=== PATIENT | male | born 1935 | race Caucasian/White ===

== ENCOUNTER 2017-09-13 23:57 | Inpatient (IN) | payer MEDICARE, OTHER ==
[2017-09-14] MEDS: CEFEPIME 2GM/50 ML (PMX) 50 ML IVPB (00:08)
[2017-09-14] MEDS: SOD CHLORIDE 0.9% 1,000 ML IV (00:30)
[2017-09-14 00:38] LABS: ADD MAN DIFF? NO
[2017-09-14 00:51] LABS: BASOPHILS % 0.6 % (0.0-2.0); HEMATOCRIT 28.9 % (42.0-52.0); HEMOGLOBIN 9.3 g/dl (14.0-18.0); LYMPHOCYTES # 0.7 10^3/ul (0.8-2.9); LYMPHOCYTES % 9.9 % (15.0-51.0); MEAN CORPUSCULAR HEMOGLOBIN 29.1 pg (29.0-33.0); MEAN CORPUSCULAR HGB CONC 32.2 g/dl (32.0-37.0); MEAN CORPUSCULAR VOLUME 90.3 fl (82.0-101.0); MEAN PLATELET VOLUME 10.3 fl (7.4-10.4); MONOCYTE # 0.4 10^3/ul (0.3-0.9); MONOCYTES % 5.8 % (0.0-11.0); NEUTROPHIL # 5.4 10^3/ul (1.6-7.5); NEUTROPHILS % 83.1 % (39.0-77.0); PLATELET COUNT 105 10^3/UL (140-415); RED CELL DISTRIBUTION WIDTH 14.1 % (11.5-14.5)
[2017-09-14 00:51] LABS: WHITE BLOOD COUNT 6.6 10^3/ul (4.8-10.8)
[2017-09-14 01:09] LABS: ALANINE AMINOTRANSFERASE 34 IU/L (13-69); ALBUMIN 2.5 g/dl (3.3-4.9); ALBUMIN/GLOBULIN RATIO 0.78; ALKALINE PHOSPHATASE 140 IU/L (42-121); ANION GAP 9 (8-16); ASPARTATE AMINO TRANSFERASE 34 IU/L (15-46); BILIRUBIN,INDIRECT 0.2 mg/dl (0-1.1); BILIRUBIN,TOTAL 0.2 mg/dl (0.2-1.3); BLOOD UREA NITROGEN 24 mg/dl (7-20); CARBON DIOXIDE 31 mmol/L (21-31); CHLORIDE 95 mmol/L (97-110); CREATININE 2.47 mg/dl (0.61-1.24); GLUCOSE 165 mg/dl (70-220); SODIUM 132 mmol/L (135-144); TOTAL PROTEIN 5.7 g/dl (6.1-8.1)
[2017-09-14 01:11] LABS: LACTIC ACID 0.8 mmol/L (0.5-2.0)
[2017-09-14 01:25] LABS: PROTIME 15.4 Sec (11.9-14.9); PT RATIO 1.2
[2017-09-14 01:26] LABS: PARTIAL THROMBOPLASTIN TIME 33.5 Sec (25.0-35.0)
[2017-09-14 01:28] LABS: TROPONIN-I 0.139 ng/ml (0.00-0.12)
[2017-09-14] MEDS: ASPIRIN 300 MG SUPP PR (02:04)
[2017-09-14] MEDS: VANCOMYCIN 1 GM (PMX) 250 ML IVPB (02:13)
[2017-09-14] MEDS: CEFEPIME 1GM/50 ML (PMX) 50 ML IVPB ×2 (02:15→09:41)
[2017-09-14] MEDS: POTASSIUM CHLORIDE (SR) 20 MEQ TAB PO (03:22)
[2017-09-14] MEDS ORDERED: ONDANSETRON 4 MG INJ IV (03:30)
[2017-09-14] MEDS ORDERED: MAGNESIUM HYDROXIDE 30ML CUP PO (03:30)
[2017-09-14] MEDS ORDERED: VANCOMYCIN IV PER PHARMACY XX (03:30)
[2017-09-14] MEDS ORDERED: ACETAMINOPHEN 325 MG TAB PO (03:30)
[2017-09-14] MEDS ORDERED: SENNA TAB PO (03:30)
[2017-09-14] MEDS ORDERED: DOCUSATE SODIUM 100 MG CAP PO ×2 (03:30)
[2017-09-14] MEDS ORDERED: NACL 0.9% 3 ML SYG IV (03:30)
[2017-09-14 03:57] LABS: ADD UMIC YES; UR ASCORBIC ACID NEGATIVE (NEGATIVE); UR BILIRUBIN (Dip) NEGATIVE (NEGATIVE); UR BLOOD (Dip) NEGATIVE (NEGATIVE); UR CLARITY CLEAR (CLEAR); UR COLOR AMBER (YELLOW); UR GLUCOSE (Dip) 2+ mg/dL (NEGATIVE); UR KETONES (Dip) NEGATIVE (NEGATIVE); UR LEUKOCYTE ESTERASE (Dip) NEGATIVE Leu/ul (NEGATIVE); UR NITRITE (Dip) NEGATIVE (NEGATIVE); UR RBC 20 /HPF (0-5); UR SPECIFIC GRAVITY (Dip) 1.018 (1.003-1.030); UR SQUAMOUS EPITHELIAL CELL FEW /HPF (FEW); UR TOTAL PROTEIN (Dip) 3+ mg/dl (NEGATIVE); UR UROBILINOGEN (Dip) 2+ mg/dL (NEGATIVE); UR WBC 4 /HPF (0-5)
[2017-09-14] MEDS: POTASSIUM CHLORIDE 20 MEQ POWDER FOR ORAL SOLN PO (05:12)
[2017-09-14 06:50] LABS: CREATINE KINASE 93 IU/L (23-200)
[2017-09-14 06:51] LABS: LACTIC ACID 0.7 mmol/L (0.5-2.0); MAGNESIUM 1.8 mg/dl (1.7-2.5)
[2017-09-14 07:02] LABS: CK INDEX 0.9
[2017-09-14 07:05] LABS: CK-MB 0.86 ng/ml (0.0-2.4)
[2017-09-14 07:07] LABS: TROPONIN-I 0.136 ng/ml (0.00-0.12)
[2017-09-14] MEDS: ACCU-CHEK XX (08:00)
[2017-09-14] MEDS: INSULIN ASPART [NOVOLOG] 3 ML PEN SC ×4 (08:00→21:00)
[2017-09-14] MEDS: PANTOPRAZOLE (EC) 40 MG TAB PO (10:06)
[2017-09-14] MEDS: LEVOTHYROXINE 25 MCG TAB PO (10:07)
[2017-09-14] MEDS: ASPIRIN 81 MG TAB PO (10:07)
[2017-09-14 10:09] LABS: CREATINE KINASE 98 IU/L (23-200)
[2017-09-14 10:18] LABS: CK INDEX 1.1
[2017-09-14 10:20] LABS: CK-MB 1.03 ng/ml (0.0-2.4)
[2017-09-14] MEDS: FERROUS SULFATE (EC) 325 MG TAB PO (10:27)
[2017-09-14] MEDS: CHOLECALCIFEROL 2,000 UNIT CAP PO (15:17)
[2017-09-14] MEDS: TAMSULOSIN (SR) 0.4 MG CAP PO ×2 (15:17→21:00)
[2017-09-14] MEDS: CYANOCOBALAMIN 500 MCG TAB PO (15:17)
[2017-09-14] MEDS: DILTIAZEM (CD) 120 MG CAP PO (15:18)
[2017-09-14] MEDS: HEPARIN 5,000 UNIT/0.5 ML VIAL SC ×2 (15:35→21:00)
[2017-09-14] MEDS: LINAGLIPTIN 5 MG TABLET PO (15:49)
[2017-09-14] MEDS: CLONIDINE 0.1 MG/24 HR PATCH TRANSDERM (15:51)
[2017-09-14] MEDS: ALBUTEROL/IPRATROPIUM (NEB) 3 ML AMP HHN (21:54)
[2017-09-15] MEDS: ALBUTEROL/IPRATROPIUM (NEB) 3 ML AMP HHN ×7 (02:48→21:00)
[2017-09-15 05:34] LABS: ADD MAN DIFF? NO
[2017-09-15] MEDS: PANTOPRAZOLE (EC) 40 MG TAB PO (06:13)
[2017-09-15] MEDS: LEVOTHYROXINE 25 MCG TAB PO (06:13)
[2017-09-15 06:18] LABS: PHOSPHORUS 4.8 mg/dl (2.5-4.9)
[2017-09-15 06:18] LABS: MAGNESIUM 1.8 mg/dl (1.7-2.5)
[2017-09-15 06:35] LABS: ALANINE AMINOTRANSFERASE 30 IU/L (13-69); ALBUMIN 2.5 g/dl (3.3-4.9); ALKALINE PHOSPHATASE 107 IU/L (42-121); ANION GAP 16 (8-16); ASPARTATE AMINO TRANSFERASE 28 IU/L (15-46); BILIRUBIN,INDIRECT 0.1 mg/dl (0-1.1); BILIRUBIN,TOTAL 0.1 mg/dl (0.2-1.3); BLOOD UREA NITROGEN 35 mg/dl (7-20); CALCIUM 7.9 mg/dl (8.4-10.2); CARBON DIOXIDE 25 mmol/L (21-31); CHLORIDE 96 mmol/L (97-110); CREATININE 3.26 mg/dl (0.61-1.24); GLUCOSE 101 mg/dl (70-220); SODIUM 134 mmol/L (135-144); TOTAL PROTEIN 5.6 g/dl (6.1-8.1)
[2017-09-15] MEDS: POTASSIUM CHLORIDE (SR) 20 MEQ TAB PO (07:03)
[2017-09-15] MEDS ORDERED: POTASSIUM CHLORIDE (SR) 20 MEQ TAB PO (07:39)
[2017-09-15] MEDS: FERROUS SULFATE (EC) 325 MG TAB PO (09:32)
[2017-09-15] MEDS: HEPARIN 5,000 UNIT/0.5 ML VIAL SC ×2 (09:32→21:00)
[2017-09-15] MEDS: TAMSULOSIN (SR) 0.4 MG CAP PO ×2 (09:32→20:50)
[2017-09-15] MEDS: ASPIRIN 81 MG TAB PO (09:32)
[2017-09-15] MEDS: CHOLECALCIFEROL 2,000 UNIT CAP PO (09:32)
[2017-09-15] MEDS: LINAGLIPTIN 5 MG TABLET PO (09:32)
[2017-09-15] MEDS: CYANOCOBALAMIN 500 MCG TAB PO (09:33)
[2017-09-15] MEDS: INSULIN ASPART [NOVOLOG] 3 ML PEN SC ×4 (09:38→21:00)
[2017-09-15] MEDS: DILTIAZEM (CD) 120 MG CAP PO (09:50)
[2017-09-15 10:09] LABS: WHITE BLOOD COUNT 4.7 10^3/ul (4.8-10.8)
[2017-09-15 10:09] LABS: BASOPHILS % 0.4 % (0.0-2.0); EOSINOPHILS % 0.2 % (0.0-7.0); HEMATOCRIT 29.4 % (42.0-52.0); HEMOGLOBIN 9.2 g/dl (14.0-18.0); LYMPHOCYTES # 0.9 10^3/ul (0.8-2.9); LYMPHOCYTES % 19.5 % (15.0-51.0); MEAN CORPUSCULAR HEMOGLOBIN 28.8 pg (29.0-33.0); MEAN CORPUSCULAR HGB CONC 31.3 g/dl (32.0-37.0); MEAN CORPUSCULAR VOLUME 91.9 fl (82.0-101.0); MEAN PLATELET VOLUME 11.4 fl (7.4-10.4); MONOCYTE # 0.3 10^3/ul (0.3-0.9); NEUTROPHIL # 3.4 10^3/ul (1.6-7.5); NEUTROPHILS % 73.7 % (39.0-77.0); PLATELET COUNT 109 10^3/UL (140-415); RED CELL DISTRIBUTION WIDTH 14.2 % (11.5-14.5)
[2017-09-15] MEDS ORDERED: VANCOMYCIN 1.5 GM in DEXTROSE 5% 500 ML IVPB (14:00)
[2017-09-15] MEDS: ACETAMINOPHEN 325 MG TAB PO (15:52)
[2017-09-15] MEDS: METOPROLOL 25 MG TAB PO (20:52)
[2017-09-15] MEDS: ZOLPIDEM 5 MG TAB PO (20:53)
[2017-09-16] MEDS: CEFEPIME 1GM/50 ML (PMX) 50 ML IVPB ×2 (00:09→22:07)
[2017-09-16] MEDS: ALBUTEROL/IPRATROPIUM (NEB) 3 ML AMP HHN ×6 (00:46→21:38)
[2017-09-16] MEDS: ACCU-CHEK XX (02:10)
[2017-09-16 06:29] LABS: ADD MAN DIFF? NO
[2017-09-16 06:36] LABS: ABNORMAL IP MESSAGE 1; BASOPHILS % 0.3 % (0.0-2.0); EOSINOPHILS % 0.1 % (0.0-7.0); HEMOGLOBIN 9.9 g/dl (14.0-18.0); LYMPHOCYTES # 0.4 10^3/ul (0.8-2.9); LYMPHOCYTES % 4.6 % (15.0-51.0); MEAN CORPUSCULAR HEMOGLOBIN 29.3 pg (29.0-33.0); MEAN CORPUSCULAR VOLUME 88.8 fl (82.0-101.0); MEAN PLATELET VOLUME 10.6 fl (7.4-10.4); MONOCYTE # 0.2 10^3/ul (0.3-0.9); MONOCYTES % 2.6 % (0.0-11.0); NEUTROPHILS % 92.1 % (39.0-77.0); PLATELET COUNT 123 10^3/UL (140-415); POSITIVE DIFF @See below; RED BLOOD COUNT 3.38 10^6/ul (4.70-6.10)
[2017-09-16 06:36] LABS: WHITE BLOOD COUNT 7.6 10^3/ul (4.8-10.8)
[2017-09-16] MEDS: LEVOTHYROXINE 25 MCG TAB PO (06:36)
[2017-09-16] MEDS: PANTOPRAZOLE 40 MG INJ IV ×3 (06:36→17:13)
[2017-09-16] MEDS: ONDANSETRON 4 MG INJ IV ×3 (06:36→17:23)
[2017-09-16 07:10] LABS: ANION GAP 16 (8-16); BLOOD UREA NITROGEN 28 mg/dl (7-20); CALCIUM 8.1 mg/dl (8.4-10.2); CARBON DIOXIDE 26 mmol/L (21-31); CHLORIDE 98 mmol/L (97-110); CREATININE 3.07 mg/dl (0.61-1.24); GLUCOSE 120 mg/dl (70-220); MAGNESIUM 1.8 mg/dl (1.7-2.5); PHOSPHORUS 3.9 mg/dl (2.5-4.9); POTASSIUM 3.6 mmol/L (3.5-5.1); SODIUM 136 mmol/L (135-144)
[2017-09-16 07:38] LABS: VANCOMYCIN,RANDOM 6.5 ug/ml
[2017-09-16] MEDS: INSULIN ASPART [NOVOLOG] 3 ML PEN SC ×4 (08:37→20:39)
[2017-09-16] MEDS: TAMSULOSIN (SR) 0.4 MG CAP PO ×2 (08:39→20:34)
[2017-09-16] MEDS: CHOLECALCIFEROL 2,000 UNIT CAP PO (08:39)
[2017-09-16] MEDS: METOPROLOL 25 MG TAB PO ×2 (08:39→20:34)
[2017-09-16] MEDS: LINAGLIPTIN 5 MG TABLET PO (08:39)
[2017-09-16] MEDS: DILTIAZEM (CD) 120 MG CAP PO (08:39)
[2017-09-16] MEDS: CYANOCOBALAMIN 500 MCG TAB PO (08:39)
[2017-09-16] MEDS: FERROUS SULFATE (EC) 325 MG TAB PO (08:39)
[2017-09-16] MEDS: VANCOMYCIN 1.25 GM in DEXTROSE 5% 250 ML IVPB (13:23)
[2017-09-16] MEDS: POTASSIUM CHLORIDE (SR) 20 MEQ TAB PO (18:47)
[2017-09-16] MEDS: MAGNESIUM SULFATE 2 GM/50 ML 50 ML IVPB (18:47)
[2017-09-16] MEDS: ZOLPIDEM 5 MG TAB PO (20:33)
[2017-09-17] MEDS: ALBUTEROL/IPRATROPIUM (NEB) 3 ML AMP HHN ×6 (00:53→20:20)
[2017-09-17] MEDS: ACCU-CHEK XX (02:00)
[2017-09-17] MEDS: LEVOTHYROXINE 25 MCG TAB PO (06:18)
[2017-09-17] MEDS: PANTOPRAZOLE 40 MG INJ IV ×2 (06:18→17:21)
[2017-09-17] MEDS: INSULIN ASPART [NOVOLOG] 3 ML PEN SC ×4 (08:00→21:00)
[2017-09-17] MEDS: CHOLECALCIFEROL 2,000 UNIT CAP PO (09:04)
[2017-09-17] MEDS: FERROUS SULFATE (EC) 325 MG TAB PO (09:04)
[2017-09-17] MEDS: CYANOCOBALAMIN 500 MCG TAB PO (09:05)
[2017-09-17] MEDS: TAMSULOSIN (SR) 0.4 MG CAP PO ×2 (09:05→21:00)
[2017-09-17] MEDS: LINAGLIPTIN 5 MG TABLET PO (09:05)
[2017-09-17] MEDS: METOPROLOL 25 MG TAB PO ×2 (09:05→21:00)
[2017-09-17] MEDS: DILTIAZEM (CD) 120 MG CAP PO (09:05)
[2017-09-17 11:44] LABS: ALANINE AMINOTRANSFERASE 33 IU/L (13-69); ALBUMIN 2.6 g/dl (3.3-4.9); ALBUMIN/GLOBULIN RATIO 0.78; ALKALINE PHOSPHATASE 108 IU/L (42-121); ANION GAP 15 (8-16); ASPARTATE AMINO TRANSFERASE 31 IU/L (15-46); BILIRUBIN,INDIRECT 0.1 mg/dl (0-1.1); BILIRUBIN,TOTAL 0.1 mg/dl (0.2-1.3); BLOOD UREA NITROGEN 33 mg/dl (7-20); CALCIUM 8.2 mg/dl (8.4-10.2); CARBON DIOXIDE 25 mmol/L (21-31); CHLORIDE 97 mmol/L (97-110); GLUCOSE 116 mg/dl (70-220); MAGNESIUM 2.4 mg/dl (1.7-2.5); POTASSIUM 3.5 mmol/L (3.5-5.1); SODIUM 133 mmol/L (135-144); TOTAL PROTEIN 5.9 g/dl (6.1-8.1)
[2017-09-17] MEDS: HYDROCODONE/APAP (5/325) TAB PO (14:44)
[2017-09-17] MEDS: CEFEPIME 1GM/50 ML (PMX) 50 ML IVPB (23:21)
[2017-09-18] MEDS: ALBUTEROL/IPRATROPIUM (NEB) 3 ML AMP HHN ×6 (01:00→20:00)
[2017-09-18] MEDS: ACCU-CHEK XX (02:00)
[2017-09-18] MEDS: PANTOPRAZOLE 40 MG INJ IV ×2 (06:26→17:22)
[2017-09-18] MEDS: LEVOTHYROXINE 25 MCG TAB PO (06:26)
[2017-09-18] MEDS: INSULIN ASPART [NOVOLOG] 3 ML PEN SC ×4 (08:00→21:00)
[2017-09-18 08:38] LABS: ADD MAN DIFF? NO
[2017-09-18 08:46] LABS: WHITE BLOOD COUNT 9.3 10^3/ul (4.8-10.8)
[2017-09-18 08:46] LABS: ABNORMAL IP MESSAGE 1; BASOPHILS % 0.2 % (0.0-2.0); EOSINOPHILS % 0.1 % (0.0-7.0); HEMOGLOBIN 8.9 g/dl (14.0-18.0); LYMPHOCYTES # 0.5 10^3/ul (0.8-2.9); LYMPHOCYTES % 5.8 % (15.0-51.0); MEAN CORPUSCULAR HEMOGLOBIN 28.6 pg (29.0-33.0); MEAN CORPUSCULAR HGB CONC 31.8 g/dl (32.0-37.0); MONOCYTE # 0.2 10^3/ul (0.3-0.9); MONOCYTES % 2.5 % (0.0-11.0); NEUTROPHIL # 8.5 10^3/ul (1.6-7.5); NEUTROPHILS % 91.1 % (39.0-77.0); PLATELET COUNT 94 10^3/UL (140-415); POSITIVE DIFF @See below; RED BLOOD COUNT 3.11 10^6/ul (4.70-6.10); RED CELL DISTRIBUTION WIDTH 14.5 % (11.5-14.5)
[2017-09-18 08:59] LABS: ANION GAP 14 (8-16); BLOOD UREA NITROGEN 24 mg/dl (7-20); CALCIUM 8.1 mg/dl (8.4-10.2); CARBON DIOXIDE 24 mmol/L (21-31); CHLORIDE 101 mmol/L (97-110); CREATININE 3.07 mg/dl (0.61-1.24); GLUCOSE 110 mg/dl (70-220); POTASSIUM 4.1 mmol/L (3.5-5.1); SODIUM 135 mmol/L (135-144)
[2017-09-18 09:22] LABS: PHOSPHORUS 3.6 mg/dl (2.5-4.9)
[2017-09-18 09:22] LABS: MAGNESIUM 2.2 mg/dl (1.7-2.5)
[2017-09-18] MEDS: TAMSULOSIN (SR) 0.4 MG CAP PO ×2 (09:54→20:51)
[2017-09-18] MEDS: CYANOCOBALAMIN 500 MCG TAB PO (09:55)
[2017-09-18] MEDS: LINAGLIPTIN 5 MG TABLET PO (09:56)
[2017-09-18] MEDS: METOPROLOL 25 MG TAB PO ×2 (09:56→20:51)
[2017-09-18] MEDS: FERROUS SULFATE (EC) 325 MG TAB PO (09:56)
[2017-09-18] MEDS: DILTIAZEM (CD) 120 MG CAP PO (09:56)
[2017-09-18] MEDS: CHOLECALCIFEROL 2,000 UNIT CAP PO (09:56)
[2017-09-18] MEDS: CEFEPIME 1GM/50 ML (PMX) 50 ML IVPB (23:17)
[2017-09-19] MEDS: ALBUTEROL/IPRATROPIUM (NEB) 3 ML AMP HHN ×6 (00:33→19:38)
[2017-09-19] MEDS: ACCU-CHEK XX (02:00)
[2017-09-19] MEDS: LEVOTHYROXINE 25 MCG TAB PO (06:06)
[2017-09-19] MEDS: PANTOPRAZOLE 40 MG INJ IV ×2 (06:07→17:23)
[2017-09-19 06:21] LABS: ADD MAN DIFF? NO
[2017-09-19 06:30] LABS: WHITE BLOOD COUNT 6.4 10^3/ul (4.8-10.8)
[2017-09-19 06:30] LABS: ABNORMAL IP MESSAGE 1; BASOPHILS % 0.5 % (0.0-2.0); EOSINOPHILS # 0.1 10^3/ul (0.0-0.5); EOSINOPHILS % 0.8 % (0.0-7.0); HEMATOCRIT 28.2 % (42.0-52.0); HEMOGLOBIN 9.1 g/dl (14.0-18.0); LYMPHOCYTES # 0.7 10^3/ul (0.8-2.9); MEAN CORPUSCULAR HEMOGLOBIN 28.9 pg (29.0-33.0); MEAN CORPUSCULAR HGB CONC 32.3 g/dl (32.0-37.0); MEAN CORPUSCULAR VOLUME 89.5 fl (82.0-101.0); MEAN PLATELET VOLUME 11.2 fl (7.4-10.4); MONOCYTE # 0.3 10^3/ul (0.3-0.9); MONOCYTES % 5.2 % (0.0-11.0); NEUTROPHIL # 5.3 10^3/ul (1.6-7.5); NEUTROPHILS % 82.2 % (39.0-77.0); PLATELET COUNT 96 10^3/UL (140-415); POSITIVE DIFF @See below; RED BLOOD COUNT 3.15 10^6/ul (4.70-6.10); RED CELL DISTRIBUTION WIDTH 14.2 % (11.5-14.5)
[2017-09-19 07:14] LABS: ANION GAP 13 (8-16); BLOOD UREA NITROGEN 28 mg/dl (7-20); CALCIUM 7.8 mg/dl (8.4-10.2); CARBON DIOXIDE 23 mmol/L (21-31); CHLORIDE 102 mmol/L (97-110); CREATININE 3.39 mg/dl (0.61-1.24); GLUCOSE 135 mg/dl (70-220); POTASSIUM 3.8 mmol/L (3.5-5.1); SODIUM 134 mmol/L (135-144)
[2017-09-19 07:23] LABS: VANCOMYCIN,RANDOM 11.7 ug/ml
[2017-09-19] MEDS: INSULIN ASPART [NOVOLOG] 3 ML PEN SC ×4 (08:00→20:30)
[2017-09-19 08:28] LABS: MAGNESIUM 2.3 mg/dl (1.7-2.5)
[2017-09-19 08:28] LABS: PHOSPHORUS 3.1 mg/dl (2.5-4.9)
[2017-09-19] MEDS: METOPROLOL 25 MG TAB PO ×2 (09:00→20:31)
[2017-09-19] MEDS: CYANOCOBALAMIN 500 MCG TAB PO (09:00)
[2017-09-19] MEDS: CHOLECALCIFEROL 2,000 UNIT CAP PO (09:26)
[2017-09-19] MEDS: TAMSULOSIN (SR) 0.4 MG CAP PO ×2 (09:26→20:31)
[2017-09-19] MEDS: FERROUS SULFATE (EC) 325 MG TAB PO (09:26)
[2017-09-19] MEDS: LINAGLIPTIN 5 MG TABLET PO (09:26)
[2017-09-19] MEDS: ONDANSETRON 4 MG INJ IV (12:26)
[2017-09-19] MEDS: DILTIAZEM (CD) 120 MG CAP PO (17:09)
[2017-09-19] MEDS: VANCOMYCIN 1 GM 250 ML IVPB (17:23)
[2017-09-19] MEDS: EPOETIN 4000 UNITS/1 ML INJ (ESRD) SC (17:40)
[2017-09-19] MEDS: DEXTROSE 50% 50 ML SYRINGE IV (20:22)
[2017-09-19] MEDS ORDERED: DEXTROSE 50% 50 ML SYRINGE (20:24)
[2017-09-19] MEDS ORDERED: GLUCOSE GEL 15 GRAM TUBE BUCCAL (21:00)
[2017-09-19] MEDS ORDERED: GLUCAGON 1 MG INJ IM (21:00)
[2017-09-19] MEDS ORDERED: DEXTROSE 50% 50 ML SYRINGE IV (21:00)
[2017-09-19] MEDS ORDERED: GLUCOSE GEL 15 GRAM TUBE PO ×2 (21:00)
[2017-09-19] MEDS: CEFEPIME 1GM/50 ML (PMX) 50 ML IVPB (23:50)
[2017-09-20] MEDS: ALBUTEROL/IPRATROPIUM (NEB) 3 ML AMP HHN ×6 (00:29→20:53)
[2017-09-20] MEDS: ACCU-CHEK XX (02:00)
[2017-09-20] MEDS ORDERED: PENDING SANTYL ORDER FOR WOUND CARE XX (03:00)
[2017-09-20] MEDS: LEVOTHYROXINE 25 MCG TAB PO (05:57)
[2017-09-20] MEDS: PANTOPRAZOLE 40 MG INJ IV ×2 (05:58→17:10)
[2017-09-20 06:19] LABS: ADD MAN DIFF? NO
[2017-09-20 06:29] LABS: BASOPHILS % 0.3 % (0.0-2.0); EOSINOPHILS % 0.3 % (0.0-7.0); HEMATOCRIT 27.7 % (42.0-52.0); HEMOGLOBIN 8.9 g/dl (14.0-18.0); MEAN CORPUSCULAR HEMOGLOBIN 28.8 pg (29.0-33.0); MEAN CORPUSCULAR HGB CONC 32.1 g/dl (32.0-37.0); MEAN CORPUSCULAR VOLUME 89.6 fl (82.0-101.0); MEAN PLATELET VOLUME 10.7 fl (7.4-10.4); MONOCYTE # 0.3 10^3/ul (0.3-0.9); NEUTROPHIL # 5.1 10^3/ul (1.6-7.5); NEUTROPHILS % 79.9 % (39.0-77.0); PLATELET COUNT 100 10^3/UL (140-415); RED BLOOD COUNT 3.09 10^6/ul (4.70-6.10); RED CELL DISTRIBUTION WIDTH 14.3 % (11.5-14.5)
[2017-09-20 06:29] LABS: WHITE BLOOD COUNT 6.4 10^3/ul (4.8-10.8)
[2017-09-20 07:04] LABS: ANION GAP 11 (8-16); BLOOD UREA NITROGEN 22 mg/dl (7-20); CALCIUM 7.8 mg/dl (8.4-10.2); CARBON DIOXIDE 25 mmol/L (21-31); CHLORIDE 104 mmol/L (97-110); CREATININE 3.33 mg/dl (0.61-1.24); GLUCOSE 116 mg/dl (70-220); POTASSIUM 4.1 mmol/L (3.5-5.1); SODIUM 136 mmol/L (135-144)
[2017-09-20 07:20] LABS: PHOSPHORUS 2.7 mg/dl (2.5-4.9)
[2017-09-20] MEDS: LINAGLIPTIN 5 MG TABLET PO (09:58)
[2017-09-20] MEDS: DILTIAZEM (CD) 120 MG CAP PO (09:58)
[2017-09-20] MEDS: TAMSULOSIN (SR) 0.4 MG CAP PO ×2 (09:58→21:01)
[2017-09-20] MEDS: FERROUS SULFATE (EC) 325 MG TAB PO (09:58)
[2017-09-20] MEDS: CHOLECALCIFEROL 2,000 UNIT CAP PO (09:58)
[2017-09-20] MEDS: CYANOCOBALAMIN 500 MCG TAB PO (09:58)
[2017-09-20] MEDS: METOPROLOL 25 MG TAB PO ×2 (09:59→21:00)
[2017-09-20] MEDS: hydrALAzine 20 MG INJ IV (12:11)
[2017-09-20] MEDS: CEFEPIME 1GM/50 ML (PMX) 50 ML IVPB (22:40)
[2017-09-21] MEDS: ALBUTEROL/IPRATROPIUM (NEB) 3 ML AMP HHN ×6 (01:00→20:29)
[2017-09-21] MEDS: ACCU-CHEK XX (02:00)
[2017-09-21] MEDS: LEVOTHYROXINE 25 MCG TAB PO (05:46)
[2017-09-21] MEDS: PANTOPRAZOLE 40 MG INJ IV ×2 (05:46→18:02)
[2017-09-21 06:19] LABS: ADD MAN DIFF? NO
[2017-09-21 06:34] LABS: ABNORMAL IP MESSAGE 1; BASOPHILS % 0.5 % (0.0-2.0); EOSINOPHILS # 0.1 10^3/ul (0.0-0.5); EOSINOPHILS % 1.4 % (0.0-7.0); HEMOGLOBIN 8.9 g/dl (14.0-18.0); LYMPHOCYTES # 0.8 10^3/ul (0.8-2.9); LYMPHOCYTES % 18.2 % (15.0-51.0); MEAN CORPUSCULAR HEMOGLOBIN 28.3 pg (29.0-33.0); MEAN CORPUSCULAR HGB CONC 31.8 g/dl (32.0-37.0); MEAN CORPUSCULAR VOLUME 89.2 fl (82.0-101.0); MEAN PLATELET VOLUME 11.3 fl (7.4-10.4); MONOCYTE # 0.3 10^3/ul (0.3-0.9); MONOCYTES % 7.2 % (0.0-11.0); NEUTROPHIL # 3.2 10^3/ul (1.6-7.5); NEUTROPHILS % 72.2 % (39.0-77.0); PLATELET COUNT 97 10^3/UL (140-415); POSITIVE DIFF @See below; RED BLOOD COUNT 3.14 10^6/ul (4.70-6.10); RED CELL DISTRIBUTION WIDTH 14.1 % (11.5-14.5)
[2017-09-21 06:34] LABS: WHITE BLOOD COUNT 4.4 10^3/ul (4.8-10.8)
[2017-09-21 07:01] LABS: MAGNESIUM 2.1 mg/dl (1.7-2.5)
[2017-09-21 07:35] LABS: ANION GAP 13 (8-16); BLOOD UREA NITROGEN 26 mg/dl (7-20); CARBON DIOXIDE 24 mmol/L (21-31); CHLORIDE 102 mmol/L (97-110); CREATININE 3.52 mg/dl (0.61-1.24); GLUCOSE 117 mg/dl (70-220); SODIUM 135 mmol/L (135-144)
[2017-09-21 10:46] LABS: HEMOGLOBIN A1C 5.6 % (0-5.9)
[2017-09-21] MEDS: CHOLECALCIFEROL 2,000 UNIT CAP PO (11:18)
[2017-09-21] MEDS: MULTIVIT/CA CARB/B CMPLX/FA TAB PO (11:18)
[2017-09-21] MEDS: TAMSULOSIN (SR) 0.4 MG CAP PO ×2 (11:18→20:21)
[2017-09-21] MEDS: METOPROLOL 25 MG TAB PO ×2 (11:18→20:21)
[2017-09-21] MEDS: LINAGLIPTIN 5 MG TABLET PO (11:19)
[2017-09-21] MEDS: DILTIAZEM (CD) 120 MG CAP PO (11:19)
[2017-09-21] MEDS: FERROUS SULFATE (EC) 325 MG TAB PO (11:19)
[2017-09-21] MEDS: CYANOCOBALAMIN 500 MCG TAB PO (11:19)
[2017-09-21] MEDS: MEGESTROL (40 MG/ML) 10ML CUP PO ×2 (11:21→20:20)
[2017-09-21] MEDS: CEFEPIME 1GM/50 ML (PMX) 50 ML IVPB (22:00)
[2017-09-22] MEDS: hydrALAzine 20 MG INJ IV (00:15)
[2017-09-22] MEDS: ALBUTEROL/IPRATROPIUM (NEB) 3 ML AMP HHN ×6 (01:30→20:17)
[2017-09-22] MEDS: ACCU-CHEK XX (02:00)
[2017-09-22] MEDS: LEVOTHYROXINE 25 MCG TAB PO (05:34)
[2017-09-22] MEDS: PANTOPRAZOLE 40 MG INJ IV ×2 (05:34→18:25)
[2017-09-22] MEDS: FERROUS SULFATE (EC) 325 MG TAB PO (09:09)
[2017-09-22] MEDS: CHOLECALCIFEROL 2,000 UNIT CAP PO (09:09)
[2017-09-22] MEDS: MEGESTROL (40 MG/ML) 10ML CUP PO ×2 (09:09→22:06)
[2017-09-22] MEDS: MULTIVIT/CA CARB/B CMPLX/FA TAB PO (09:09)
[2017-09-22] MEDS: CYANOCOBALAMIN 500 MCG TAB PO (09:10)
[2017-09-22] MEDS: TAMSULOSIN (SR) 0.4 MG CAP PO ×2 (09:10→22:08)
[2017-09-22] MEDS: LINAGLIPTIN 5 MG TABLET PO (09:10)
[2017-09-22] MEDS: METOPROLOL 25 MG TAB PO ×2 (09:10→22:08)
[2017-09-22] MEDS: DILTIAZEM (CD) 120 MG CAP PO (09:12)
[2017-09-22] MEDS: ACETAMINOPHEN 325 MG TAB PO (16:25)
[2017-09-22] MEDS: CEFEPIME 1GM/50 ML (PMX) 50 ML IVPB (22:08)
[2017-09-22] MEDS: ZOLPIDEM 5 MG TAB PO (22:50)
[2017-09-22] MEDS: EPOETIN 4000 UNITS/1 ML INJ (ESRD) SC (23:51)
[2017-09-23] MEDS: ACCU-CHEK XX (02:00)
[2017-09-23] MEDS: ALBUTEROL/IPRATROPIUM (NEB) 3 ML AMP HHN ×5 (02:15→17:00)
[2017-09-23 06:07] LABS: ADD MAN DIFF? NO
[2017-09-23] MEDS: PANTOPRAZOLE 40 MG INJ IV ×2 (06:14→18:00)
[2017-09-23] MEDS: LEVOTHYROXINE 25 MCG TAB PO (06:16)
[2017-09-23 06:27] LABS: WHITE BLOOD COUNT 4.5 10^3/ul (4.8-10.8)
[2017-09-23 06:27] LABS: BASOPHILS % 0.4 % (0.0-2.0); EOSINOPHILS % 0.4 % (0.0-7.0); HEMATOCRIT 28.3 % (42.0-52.0); HEMOGLOBIN 9.3 g/dl (14.0-18.0); LYMPHOCYTES # 0.8 10^3/ul (0.8-2.9); LYMPHOCYTES % 16.7 % (15.0-51.0); MEAN CORPUSCULAR HEMOGLOBIN 28.4 pg (29.0-33.0); MEAN CORPUSCULAR HGB CONC 32.9 g/dl (32.0-37.0); MEAN CORPUSCULAR VOLUME 86.3 fl (82.0-101.0); MEAN PLATELET VOLUME 10.3 fl (7.4-10.4); MONOCYTE # 0.3 10^3/ul (0.3-0.9); MONOCYTES % 6.7 % (0.0-11.0); NEUTROPHIL # 3.4 10^3/ul (1.6-7.5); NEUTROPHILS % 75.4 % (39.0-77.0); PLATELET COUNT 118 10^3/UL (140-415); RED BLOOD COUNT 3.28 10^6/ul (4.70-6.10); RED CELL DISTRIBUTION WIDTH 13.6 % (11.5-14.5)
[2017-09-23 07:04] LABS: PHOSPHORUS 2.7 mg/dl (2.5-4.9)
[2017-09-23 07:04] LABS: MAGNESIUM 1.9 mg/dl (1.7-2.5)
[2017-09-23 07:11] LABS: ANION GAP 17 (8-16); BLOOD UREA NITROGEN 22 mg/dl (7-20); CARBON DIOXIDE 24 mmol/L (21-31); CHLORIDE 97 mmol/L (97-110); CREATININE 3.26 mg/dl (0.61-1.24); GLUCOSE 122 mg/dl (70-220); POTASSIUM 4.2 mmol/L (3.5-5.1); SODIUM 134 mmol/L (135-144)
[2017-09-23 07:16] LABS: VANCOMYCIN,RANDOM 13.2 ug/ml
[2017-09-23] MEDS: TAMSULOSIN (SR) 0.4 MG CAP PO (09:43)
[2017-09-23] MEDS: MEGESTROL (40 MG/ML) 10ML CUP PO (09:43)
[2017-09-23] MEDS: LINAGLIPTIN 5 MG TABLET PO (09:43)
[2017-09-23] MEDS: CHOLECALCIFEROL 2,000 UNIT CAP PO (09:43)
[2017-09-23] MEDS: METOPROLOL 25 MG TAB PO (09:43)
[2017-09-23] MEDS: FERROUS SULFATE (EC) 325 MG TAB PO (09:43)
[2017-09-23] MEDS: MULTIVIT/CA CARB/B CMPLX/FA TAB PO (09:43)
[2017-09-23] MEDS: DILTIAZEM (CD) 120 MG CAP PO (09:50)
[2017-09-23] MEDS: CYANOCOBALAMIN 500 MCG TAB PO (09:50)
[2017-09-23] MEDS ORDERED: VANCOMYCIN 1 GM in SODIUM CHLORIDE 0.45 % 250 ML IVPB (10:00)
[2017-09-23] MEDS: VANCOMYCIN 1 GM 250 ML IVPB (11:14)
[2017-09-23] MEDS: hydrALAzine 20 MG INJ IV (15:27)
== END 2017-09-23 18:35 | DRG 919 ==
LOC: E/R 23:57 → MS4 09-14 03:08
PROVIDERS: Internal Medicine
DX: T85.79XA Infection and inflammatory reaction due to other internal prosthetic devices, implants and grafts, initial encounter (principal); A41.1 Sepsis due to other specified staphylococcus; G93.40 Encephalopathy, unspecified; J18.9 Pneumonia, unspecified organism; I13.2 Hypertensive heart and chronic kidney disease with heart failure and with stage 5 chronic kidney disease, or end stage renal disease; E46 Unspecified protein-calorie malnutrition; E87.0 Hyperosmolality and hypernatremia; N18.6 End stage renal disease; F03.90 Unspecified dementia, unspecified severity, without behavioral disturbance, psychotic disturbance, mood disturbance, and anxiety; R65.20 Severe sepsis without septic shock; K92.2 Gastrointestinal hemorrhage, unspecified; I24.8 Other forms of acute ischemic heart disease; I50.30 Unspecified diastolic (congestive) heart failure; E13.40 Other specified diabetes mellitus with diabetic neuropathy, unspecified; D69.6 Thrombocytopenia, unspecified; I48.0 Paroxysmal atrial fibrillation; D64.9 Anemia, unspecified; J20.9 Acute bronchitis, unspecified; Z86.73 Personal history of transient ischemic attack (TIA), and cerebral infarction without residual deficits; N40.0 Benign prostatic hyperplasia without lower urinary tract symptoms; E11.22 Type 2 diabetes mellitus with diabetic chronic kidney disease; Z99.2 Dependence on renal dialysis; I95.9 Hypotension, unspecified; E87.6 Hypokalemia; E83.9 Disorder of mineral metabolism, unspecified; R13.10 Dysphagia, unspecified; D63.8 Anemia in other chronic diseases classified elsewhere; I25.10 Atherosclerotic heart disease of native coronary artery without angina pectoris; M19.91 Primary osteoarthritis, unspecified site
CPT/HCPCS: 36415; 71010; 80048; 80053; 80202; 81001; 82550; 82553; 82962; 83036; 83605; 83735; 84100; 84484; 85025; 85610; 85730; 87040; 87086; 90935; 92526; 92610; 93005; 93306; 94640; 94664; 96365; 96366; 96367; 96372; 96375; 99285-25

== ENCOUNTER 2017-10-08 09:39 | Day surgery (SDC) | payer MEDICARE, OTHER ==
[2017-10-08] MEDS ORDERED: FENTAnyl 50 MCG/ML VIAL ×2 (11:36)
[2017-10-08] MEDS ORDERED: IODIXANOL LOCM 50 ML BTL ×6 (12:02→12:59)
[2017-10-08] MEDS ORDERED: HEPARIN 1000 UNITS/ML 10 ML INJ ×2 (12:22)
[2017-10-08] MEDS ORDERED: hydrALAzine 20 MG INJ ×4 (13:18→13:45)
== END 2017-10-08 16:10 | disposition home or self-care (01) ==
LOC: SDS 09:39
DX: T82.898A Other specified complication of vascular prosthetic devices, implants and grafts, initial encounter (principal); Y84.1 Kidney dialysis as the cause of abnormal reaction of the patient, or of later complication, without mention of misadventure at the time of the procedure; I12.0 Hypertensive chronic kidney disease with stage 5 chronic kidney disease or end stage renal disease; N18.6 End stage renal disease; E11.9 Type 2 diabetes mellitus without complications; Z86.73 Personal history of transient ischemic attack (TIA), and cerebral infarction without residual deficits; E78.5 Hyperlipidemia, unspecified; E03.9 Hypothyroidism, unspecified; I50.30 Unspecified diastolic (congestive) heart failure; Z79.82 Long term (current) use of aspirin
CPT/HCPCS: 36584; 36902; 36909; 37248; 37249; 75825; 82962

== ENCOUNTER 2017-10-22 05:45 | Inpatient (IN) | payer MEDICARE, OTHER ==
[2017-10-22 07:31] LABS: ADD MAN DIFF? NO
[2017-10-22 07:32] LABS: WHITE BLOOD COUNT 7.3 10^3/ul (4.8-10.8)
[2017-10-22 07:32] LABS: BASOPHIL # 0.1 10^3/ul (0.0-0.1); BASOPHILS % 0.8 % (0.0-2.0); EOSINOPHILS # 0.1 10^3/ul (0.0-0.5); EOSINOPHILS % 1.1 % (0.0-7.0); HEMATOCRIT 30.4 % (42.0-52.0); HEMOGLOBIN 9.8 g/dl (14.0-18.0); LYMPHOCYTES # 1.1 10^3/ul (0.8-2.9); LYMPHOCYTES % 15.1 % (15.0-51.0); MEAN CORPUSCULAR HEMOGLOBIN 28.7 pg (29.0-33.0); MEAN CORPUSCULAR HGB CONC 32.2 g/dl (32.0-37.0); MEAN CORPUSCULAR VOLUME 89.1 fl (82.0-101.0); MEAN PLATELET VOLUME 10.2 fl (7.4-10.4); MONOCYTE # 0.5 10^3/ul (0.3-0.9); NEUTROPHIL # 5.5 10^3/ul (1.6-7.5); NEUTROPHILS % 75.6 % (39.0-77.0); PLATELET COUNT 145 10^3/UL (140-415); RED BLOOD COUNT 3.41 10^6/ul (4.70-6.10); RED CELL DISTRIBUTION WIDTH 15.5 % (11.5-14.5)
[2017-10-22] MEDS ORDERED: IODIXANOL LOCM 50 ML BTL (07:34)
[2017-10-22] MEDS ORDERED: LIDOCAINE 1% (MDV) 20 ML INJ (07:34)
[2017-10-22] MEDS ORDERED: HEPARIN 1000 UNITS/NS (A-LINE) 1,000 ML (07:34)
[2017-10-22 07:36] LABS: HOLD TRANSMISSIONS 1; INR 1.09; PROTIME 14.3 Sec (11.9-14.9); PT RATIO 1.1
[2017-10-22 07:37] LABS: PARTIAL THROMBOPLASTIN TIME 29.8 Sec (25.0-35.0)
[2017-10-22 07:40] LABS: ALANINE AMINOTRANSFERASE 23 IU/L (13-69); ALBUMIN 2.6 g/dl (3.3-4.9); ALBUMIN/GLOBULIN RATIO 0.81; ALKALINE PHOSPHATASE 138 IU/L (42-121); ANION GAP 12 (8-16); ASPARTATE AMINO TRANSFERASE 14 IU/L (15-46); CARBON DIOXIDE 30 mmol/L (21-31); CHLORIDE 98 mmol/L (97-110); GLUCOSE 186 mg/dl (70-220); TOTAL PROTEIN 5.8 g/dl (6.1-8.1)
[2017-10-22 07:49] LABS: SODIUM 136 mmol/L (135-144)
[2017-10-22 07:50] LABS: CALCIUM 8.5 mg/dl (8.4-10.2)
[2017-10-22 07:52] LABS: BLOOD UREA NITROGEN 32 mg/dl (7-20); CREATININE 2.48 mg/dl (0.61-1.24); POTASSIUM 4.1 mmol/L (3.5-5.1)
[2017-10-22] MEDS ORDERED: FENTAnyl 50 MCG/ML VIAL (07:52)
[2017-10-22] MEDS ORDERED: HEPARIN 1000 UNITS/ML 10 ML INJ (07:59)
[2017-10-22] MEDS ORDERED: hydrALAzine 20 MG INJ (08:11)
[2017-10-22] MEDS: morphine 2 MG INJ IV (09:34)
[2017-10-22] MEDS ORDERED: hydrALAzine 20 MG INJ IV (10:00)
[2017-10-22 10:14] LABS: ANION GAP 15 (8-16); CARBON DIOXIDE 25 mmol/L (21-31); CHLORIDE 101 mmol/L (97-110); GLUCOSE 112 mg/dl (70-220)
[2017-10-22 10:21] LABS: BLOOD UREA NITROGEN 34 mg/dl (7-20); CALCIUM 8.4 mg/dl (8.4-10.2); CREATINE KINASE < 20 IU/L (23-200); CREATININE 2.51 mg/dl (0.61-1.24); POTASSIUM 4.5 mmol/L (3.5-5.1); SODIUM 136 mmol/L (135-144)
[2017-10-22 10:25] LABS: TROPONIN-I 0.022 ng/ml (0.00-0.12)
[2017-10-22 10:27] LABS: CK-MB 0.87 ng/ml (0.0-2.4)
[2017-10-22] MEDS: ASPIRIN 81 MG TAB PO (12:48)
[2017-10-22] MEDS ORDERED: ACETAMINOPHEN 325 MG TAB PO (17:30)
[2017-10-22] MEDS ORDERED: SENNA TAB PO (17:30)
[2017-10-22] MEDS ORDERED: VANCOMYCIN IV PER PHARMACY XX (17:30)
[2017-10-22] MEDS ORDERED: ONDANSETRON 4 MG INJ IV (17:30)
[2017-10-22] MEDS ORDERED: MAGNESIUM HYDROXIDE 30ML CUP PO ×2 (17:30)
[2017-10-22] MEDS ORDERED: HYDROCODONE/APAP (5/325) TAB PO (17:30)
[2017-10-22] MEDS ORDERED: ZOLPIDEM 5 MG TAB PO ×2 (17:30)
[2017-10-22] MEDS ORDERED: DOCUSATE SODIUM 100 MG CAP PO ×2 (17:30)
[2017-10-22] MEDS ORDERED: NACL 0.9% 3 ML SYG IV (17:30)
[2017-10-22 19:39] LABS: TROPONIN-I 0.032 ng/ml (0.00-0.12)
[2017-10-22] MEDS: VANCOMYCIN 1.25 GM in SOD CHLORIDE 0.45% 250 ML IVPB (19:57)
[2017-10-22] MEDS: CEFEPIME 1GM/50 ML (PMX) 50 ML IVPB (21:00)
[2017-10-22] MEDS: TAMSULOSIN (SR) 0.4 MG CAP PO (21:20)
[2017-10-22] MEDS: METOPROLOL 25 MG TAB PO (21:20)
[2017-10-22] MEDS: HEPARIN 5,000 UNIT/0.5 ML VIAL SC (21:28)
[2017-10-23] MEDS: CEFEPIME 1GM/50 ML (PMX) 50 ML IVPB (03:17)
[2017-10-23] MEDS: ACETAMINOPHEN 325 MG TAB PO (04:27)
[2017-10-23] MEDS: LEVOTHYROXINE 25 MCG TAB PO (06:13)
[2017-10-23] MEDS: PANTOPRAZOLE (EC) 40 MG TAB PO (06:13)
[2017-10-23] MEDS ORDERED: PANTOPRAZOLE (EC) 40 MG TAB PO (07:00)
[2017-10-23] MEDS: DILTIAZEM (CD) 120 MG CAP PO (08:52)
[2017-10-23] MEDS: FERROUS SULFATE (EC) 325 MG TAB PO (08:52)
[2017-10-23] MEDS: TAMSULOSIN (SR) 0.4 MG CAP PO ×2 (08:52→23:21)
[2017-10-23] MEDS: MULTIVIT/CA CARB/B CMPLX/FA TAB PO (08:52)
[2017-10-23] MEDS: CHOLECALCIFEROL 2,000 UNIT CAP PO (08:53)
[2017-10-23] MEDS: CYANOCOBALAMIN 500 MCG TAB PO (08:53)
[2017-10-23] MEDS: METOPROLOL 25 MG TAB PO ×2 (08:53→23:23)
[2017-10-23] MEDS: HEPARIN 5,000 UNIT/0.5 ML VIAL SC ×2 (09:04→23:34)
[2017-10-23 09:07] LABS: ADD MAN DIFF? NO
[2017-10-23 09:14] LABS: BASOPHIL # 0.1 10^3/ul (0.0-0.1); BASOPHILS % 0.7 % (0.0-2.0); EOSINOPHILS % 0.4 % (0.0-7.0); HEMATOCRIT 28.2 % (42.0-52.0); HEMOGLOBIN 9.1 g/dl (14.0-18.0); LYMPHOCYTES # 0.9 10^3/ul (0.8-2.9); LYMPHOCYTES % 7.9 % (15.0-51.0); MEAN CORPUSCULAR HGB CONC 32.3 g/dl (32.0-37.0); MEAN CORPUSCULAR VOLUME 89.8 fl (82.0-101.0); MEAN PLATELET VOLUME 10.2 fl (7.4-10.4); MONOCYTE # 0.2 10^3/ul (0.3-0.9); MONOCYTES % 1.7 % (0.0-11.0); NEUTROPHIL # 9.5 10^3/ul (1.6-7.5); NEUTROPHILS % 88.4 % (39.0-77.0); PLATELET COUNT 110 10^3/UL (140-415); RED BLOOD COUNT 3.14 10^6/ul (4.70-6.10)
[2017-10-23 09:14] LABS: WHITE BLOOD COUNT 10.8 10^3/ul (4.8-10.8)
[2017-10-23 09:31] LABS: HEMOGLOBIN A1C 5.2 % (0-5.9)
[2017-10-23 09:34] LABS: ALANINE AMINOTRANSFERASE 28 IU/L (13-69); ALBUMIN 2.3 g/dl (3.3-4.9); ALBUMIN/GLOBULIN RATIO 0.79; ALKALINE PHOSPHATASE 87 IU/L (42-121); ANION GAP 15 (8-16); ASPARTATE AMINO TRANSFERASE 14 IU/L (15-46); BLOOD UREA NITROGEN 44 mg/dl (7-20); CALCIUM 8.1 mg/dl (8.4-10.2); CARBON DIOXIDE 28 mmol/L (21-31); CHLORIDE 100 mmol/L (97-110); CREATININE 3.39 mg/dl (0.61-1.24); GLUCOSE 107 mg/dl (70-220); SODIUM 139 mmol/L (135-144); TOTAL PROTEIN 5.2 g/dl (6.1-8.1)
[2017-10-23 10:02] LABS: TROPONIN-I 0.029 ng/ml (0.00-0.12)
[2017-10-23 14:50] LABS: LACTIC ACID 1.3 mmol/L (0.5-2.0)
[2017-10-23 14:59] LABS: HAAIG REFLEX REFLEX FILED
[2017-10-23 15:58] LABS: HEPATITIS B SURFACE ANTIGEN NEGATIVE (NEGATIVE)
[2017-10-23 16:16] LABS: HEPATITIS B CORE ANTIBODY NEGATIVE (NEGATIVE); HEPATITIS C VIRAL ANTIBODY NEGATIVE (NEGATIVE)
[2017-10-23 18:23] LABS: HEPATITIS B SURFACE ANTIBODY INDETERMINATE (NEGATIVE)
[2017-10-24] MEDS: LEVOTHYROXINE 25 MCG TAB PO (06:18)
[2017-10-24] MEDS: PANTOPRAZOLE (EC) 40 MG TAB PO (06:18)
[2017-10-24 07:44] LABS: ADD MAN DIFF? NO
[2017-10-24 07:50] LABS: WHITE BLOOD COUNT 6.8 10^3/ul (4.8-10.8)
[2017-10-24 07:50] LABS: BASOPHIL # 0.1 10^3/ul (0.0-0.1); BASOPHILS % 0.9 % (0.0-2.0); EOSINOPHILS # 0.1 10^3/ul (0.0-0.5); EOSINOPHILS % 1.3 % (0.0-7.0); HEMATOCRIT 29.1 % (42.0-52.0); HEMOGLOBIN 9.2 g/dl (14.0-18.0); LYMPHOCYTES # 0.9 10^3/ul (0.8-2.9); LYMPHOCYTES % 12.9 % (15.0-51.0); MEAN CORPUSCULAR HEMOGLOBIN 27.9 pg (29.0-33.0); MEAN CORPUSCULAR HGB CONC 31.6 g/dl (32.0-37.0); MEAN CORPUSCULAR VOLUME 88.2 fl (82.0-101.0); MONOCYTE # 0.4 10^3/ul (0.3-0.9); MONOCYTES % 5.2 % (0.0-11.0); NEUTROPHIL # 5.4 10^3/ul (1.6-7.5); NEUTROPHILS % 79.3 % (39.0-77.0); PLATELET COUNT 133 10^3/UL (140-415); RED CELL DISTRIBUTION WIDTH 15.7 % (11.5-14.5)
[2017-10-24 08:17] LABS: VANCOMYCIN,RANDOM 10.7 ug/ml
[2017-10-24 08:20] LABS: ANION GAP 14 (8-16); BLOOD UREA NITROGEN 23 mg/dl (7-20); CALCIUM 8.1 mg/dl (8.4-10.2); CARBON DIOXIDE 29 mmol/L (21-31); CHLORIDE 100 mmol/L (97-110); GLUCOSE 127 mg/dl (70-220); MAGNESIUM 1.9 mg/dl (1.7-2.5); PHOSPHORUS 3.1 mg/dl (2.5-4.9); POTASSIUM 3.6 mmol/L (3.5-5.1); SODIUM 139 mmol/L (135-144)
[2017-10-24] MEDS: CYANOCOBALAMIN 500 MCG TAB PO (08:54)
[2017-10-24] MEDS: CHOLECALCIFEROL 2,000 UNIT CAP PO (08:54)
[2017-10-24] MEDS: FERROUS SULFATE (EC) 325 MG TAB PO (08:54)
[2017-10-24] MEDS: MULTIVIT/CA CARB/B CMPLX/FA TAB PO (08:54)
[2017-10-24] MEDS: TAMSULOSIN (SR) 0.4 MG CAP PO (08:54)
[2017-10-24] MEDS: DILTIAZEM (CD) 120 MG CAP PO (08:55)
[2017-10-24] MEDS: METOPROLOL 25 MG TAB PO ×2 (08:55→20:39)
[2017-10-24] MEDS: HEPARIN 5,000 UNIT/0.5 ML VIAL SC (09:03)
[2017-10-24] MEDS: VANCOMYCIN 1 GM 250 ML IVPB (11:30)
== END 2017-10-24 20:55 | disposition home health service (06) | DRG 853 ==
LOC: SDS 05:45 → REC 15:18 → TEL 18:00
PROC: 067F3ZZ Dilation of Right External Iliac Vein, Percutaneous Approach (ICD-10-PCS; principal; 2017-10-22 07:28)
PROC: 067C3ZZ Dilation of Right Common Iliac Vein, Percutaneous Approach (ICD-10-PCS; 2017-10-22 07:28)
PROC: 06PYX3Z Removal of Infusion Device from Lower Vein, External Approach (ICD-10-PCS; 2017-10-22 07:28)
PROC: 5A1D70Z Performance of Urinary Filtration, Intermittent, Less than 6 Hours Per Day (ICD-10-PCS; 2017-10-22 07:28)
PROC: 5A1D70Z Performance of Urinary Filtration, Intermittent, Less than 6 Hours Per Day (ICD-10-PCS; 2017-10-22 07:28)
DX: R50.82 Postprocedural fever (principal); N18.6 End stage renal disease; I13.2 Hypertensive heart and chronic kidney disease with heart failure and with stage 5 chronic kidney disease, or end stage renal disease; G93.49 Other encephalopathy; E11.22 Type 2 diabetes mellitus with diabetic chronic kidney disease; R65.10 Systemic inflammatory response syndrome (SIRS) of non-infectious origin without acute organ dysfunction; E11.40 Type 2 diabetes mellitus with diabetic neuropathy, unspecified; I50.30 Unspecified diastolic (congestive) heart failure; I87.1 Compression of vein; Z99.2 Dependence on renal dialysis; E78.5 Hyperlipidemia, unspecified; D63.1 Anemia in chronic kidney disease; M19.90 Unspecified osteoarthritis, unspecified site; N40.0 Benign prostatic hyperplasia without lower urinary tract symptoms; F32.9 Major depressive disorder, single episode, unspecified; E03.9 Hypothyroidism, unspecified; F01.50 Vascular dementia, unspecified severity, without behavioral disturbance, psychotic disturbance, mood disturbance, and anxiety; Z86.73 Personal history of transient ischemic attack (TIA), and cerebral infarction without residual deficits
CPT/HCPCS: 37248; 71045; 80048; 80053; 80202; 82550; 82553; 82962; 83036; 83605; 83735; 84100; 84484; 85025; 85610; 85730; 86704; 86706; 86709; 86803; 87040; 87340; 90935; 93005

== ENCOUNTER 2018-03-03 08:52 | Day surgery (SDC) | payer MEDICARE, OTHER ==
[2018-03-03 09:31] LABS: ADD MAN DIFF? NO
[2018-03-03 09:40] LABS: BASOPHIL # 0.1 10^3/ul (0.0-0.1); BASOPHILS % 1.8 % (0.0-2.0); EOSINOPHILS # 0.1 10^3/ul (0.0-0.5); HEMATOCRIT 39.6 % (42.0-52.0); HEMOGLOBIN 12.7 g/dl (14.0-18.0); LYMPHOCYTES # 1.3 10^3/ul (0.8-2.9); LYMPHOCYTES % 19.5 % (15.0-51.0); MEAN CORPUSCULAR HEMOGLOBIN 29.9 pg (29.0-33.0); MEAN CORPUSCULAR HGB CONC 32.1 g/dl (32.0-37.0); MEAN CORPUSCULAR VOLUME 93.2 fl (82.0-101.0); MEAN PLATELET VOLUME 9.1 fl (7.4-10.4); MONOCYTE # 0.6 10^3/ul (0.3-0.9); MONOCYTES % 8.3 % (0.0-11.0); NEUTROPHIL # 4.5 10^3/ul (1.6-7.5); NEUTROPHILS % 67.9 % (39.0-77.0); PLATELET COUNT 177 10^3/UL (140-415); RED BLOOD COUNT 4.25 10^6/ul (4.70-6.10); RED CELL DISTRIBUTION WIDTH 15.3 % (11.5-14.5)
[2018-03-03 09:40] LABS: WHITE BLOOD COUNT 6.6 10^3/ul (4.8-10.8)
[2018-03-03] MEDS ORDERED: IODIXANOL LOCM 50 ML BTL (09:41)
[2018-03-03] MEDS ORDERED: LIDOCAINE 1% (MDV) 20 ML INJ (09:41)
[2018-03-03] MEDS ORDERED: HEPARIN 1000 UNITS/ML 10 ML INJ (09:41)
[2018-03-03 09:54] LABS: ANION GAP 12 (8-16); CARBON DIOXIDE 30 mmol/L (21-31); CHLORIDE 101 mmol/L (97-110); GLUCOSE 120 mg/dl (70-220)
[2018-03-03 10:00] LABS: INR 1.04; PROTIME 13.7 Sec (11.9-14.9); PT RATIO 1.1
[2018-03-03] MEDS ORDERED: hydrALAzine 20 MG INJ (10:00)
[2018-03-03 10:01] LABS: PARTIAL THROMBOPLASTIN TIME 29.7 Sec (25.0-35.0)
[2018-03-03 10:03] LABS: BLOOD UREA NITROGEN 43 mg/dl (7-20); CALCIUM 9.2 mg/dl (8.4-10.2); CREATININE 3.09 mg/dl (0.61-1.24); POTASSIUM 4.3 mmol/L (3.5-5.1); SODIUM 139 mmol/L (135-144)
[2018-03-03] MEDS ORDERED: MIDAZOLAM 1 MG/ML 2 ML INJ (10:05)
[2018-03-03] MEDS ORDERED: IODIXANOL LOCM 100 ML BTL (10:27)
== END 2018-03-03 12:12 | disposition home or self-care (01) ==
LOC: SDS 08:52
DX: I12.0 Hypertensive chronic kidney disease with stage 5 chronic kidney disease or end stage renal disease (principal); N18.6 End stage renal disease
CPT/HCPCS: 36902; 76937; 80048; 82962; 85025; 85610; 85730